=== PATIENT | male | born 1985 | race African-American/Black ===

== ENCOUNTER 2019-12-23 10:02 | Emergency (ER) | payer OTHER ==
[~2019-12-23] VITALS: Ht 167.6 cm; Wt 66.0 kg
--- NOTE | 2019-12-23 10:22 | NUR ---
THIS IS A 34 YEAR OLD MALE WHO C/O OF SUBSTERNAL CHEST PAIN. PAIN IS 10/10. PT DENIES ANY CARDIAC HX. 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 FAMILY AT BS. CALL LIGHT WITHIN REACH.
[2019-12-23] MEDS ORDERED: KETOROLAC 30 MG/1 ML IM ONE (10:30)
--- NOTE | 2019-12-23 10:39 | NUR ---
PT TO IMAGING.
[2019-12-23 10:40] LABS: BASOPHILS # (AUTO) 0.01 x10^3/uL (0-0.1); BASOPHILS % (AUTO) 0 % (0-1); EOSINOPHILS # (AUTO) 0.02 x10^3/uL (0-0.4); EOSINOPHILS % (AUTO) 0 % (1-7); LYMPHOCYTES # (AUTO) 0.64 x10^3/uL (1-3.4); LYMPHOCYTES % (AUTO) 5 % (22-44); MD NO; MEAN CORPUSCULAR HEMOGLOBIN 30.5 pg (27.5-34.5); MEAN CORPUSCULAR HGB CONC 33.3 g/dL (33.2-36.2); MEAN CORPUSCULAR VOLUME 91.6 fL (81-97); MEAN PLATELET VOLUME 7.4 fL (7.4-10.4); MONOCYTES # (AUTO) 0.36 x10^3/uL (0.2-0.8); MONOCYTES % (AUTO) 3 % (2-9); NEUTROPHILS # (AUTO) 12.47 x10^3/uL (1.8-6.8); NEUTROPHILS % (AUTO) 92 % (42-75); PLATELET COUNT 248 x10^3/uL (130-400); RED BLOOD COUNT 5.18 x10^6/uL (4.38-5.82); RED CELL DISTRIBUTION WIDTH 13.5 % (9.4-14.8)
[2019-12-23] MEDS ORDERED: KETOROLAC 60 MG/2 ML ONE (10:45)
[2019-12-23 10:50] LABS: ANION GAP 8 mmol/L (5-15); C-REACTIVE PROTEIN, QUANT 0.05 mg/dL (0.02-0.49); CALCIUM 9.1 mg/dL (8.5-10.1); CHLORIDE 107 mmol/L (98-107); CREATININE 1.18 mg/dL (0.7-1.3)
--- NOTE | 2019-12-23 10:50 | NUR ---
PT STATES HIS CHEST ONLY HURTS WHEN HE "DOES STUFF." LIKE STANDING FOR THE XRAY, OR MOVING TO REMOVE HIS PANTS FOR SHOT. PT TOLERATED SHOT WELL. AT BEDSIDE.
[2019-12-23 11:24] VITALS: BP 127/78
--- NOTE | 2019-12-23 11:29 | NUR ---
ERP TO BEDSIDE. PT STATES RELEIF FROM PAIN. QUESTIONS ANSWERED. NO SIGNS OF DISTRESS.
--- NOTE | 2019-12-23 11:45 | NUR ---
PT DRESSED SELF IN CLOTHES, SITTING IN CHAIR, WAITING FOR D/C INSTRUCTIONS. REMAINS NEXT TO PT, HOLDING HANDS. NO SIGNS OF DISTRESS.
== END 2019-12-23 11:54 | disposition home or self-care (01) ==
LOC: ED 10:48
DX: R07.89 Other chest pain (principal); R42 Dizziness and giddiness; R19.7 Diarrhea, unspecified
CPT/HCPCS: 36415; 71046; 80048; 85025; 85379; 86140; 93005; 96372; 99285; J1885